=== PATIENT | female | born 1965 | race Caucasian/White ===

== ENCOUNTER → 2016-09-13 | Outpatient (CLI) | payer OTHER ==
--- NOTE | 2016-09-13 14:29 | Diagnostic Imaging Report ---
EXAM: Digital mammogram bilateral screening. COMPARISON: 03/21/14 and 01/15/13. At this time, there are no current complaints. FINDINGS: The fibroglandular tissue in both breasts is heterogeneously dense. This does limit the sensitivity of this exam. In the interval since the previous study, a fairly well-circumscribed 1.8 x 2.6 cm oval density has developed in the 1 o'clock position of the left breast approximately 15 cm from the nipple. This finding does not have an aggressive appearance and this may represent a cyst. Even so, a solid lesion cannot be entirely excluded. I would recommend that a compression/magnification view of this density be obtained in the CC and MLO projections so its margins can be better evaluated. Ultrasound should also be performed. There is also another new nodular density in the lateral aspect of the right breast roughly 11 cm from the nipple. On the craniocaudad view, this density measures approximately 1 cm. This finding is difficult to identify with certainty on the MLO view although I suspect it is in the superior portion of the breast. I would recommend that this area also be compressed in the CC and MLO projections for further study. Ultrasound should be performed, as well. IMPRESSION: Additional mammographic views and ultrasound of both breasts would be recommended for further study. ACR category zero. ACR BI-RADS Category 0: Incomplete. (Needs additional imaging evaluation). Result letter will be mailed to the patient. Note: At least 10% of breast cancer is not imaged by mammography. Dictated by: Dictated on workstation # [id number]
== END ==
LOC: RAD 09:22
PROVIDERS: ATTEND Obstetrics & Gynecology
DX: Z12.31 Encounter for screening mammogram for malignant neoplasm of breast (principal); N63 Unspecified lump in breast
CPT/HCPCS: 77067

== ENCOUNTER → 2016-09-26 | Outpatient (CLI) | payer OTHER ==
--- NOTE | 2016-09-26 10:39 | Diagnostic Imaging Report ---
EXAM: Bilateral breast ultrasound. INDICATION: Asymmetries seen on mammography. FINDINGS: In the left breast there is a lobulated 2.7 x 1.2 x 2 cm solid mass with circumscribed lobulated margins and no shadowing. There is internal vascularity demonstrated. This is the favored to be a fibroadenoma. This is located at 2:30 o'clock position, 7 cm from the nipple. Other lesions in the left breast include a 2:00 o'clock, 7 cm from the nipple adjacent to the larger lesion is a small nodule measuring the 0.8 x 0.9 x 0.6 cm. Other nonspecific hyperechoic foci are also noted around the 3:00 o'clock zone without internal vascularity. These could relate to fibroglandular tissues. The right breast demonstrates no underlying lesion. IMPRESSION: 1. The right breast demonstrates no definite abnormality. 2. The left breast demonstrates a dominant lesion with solid features measuring 2.7 cm at 2:30 o'clock position 7 cm from the nipple. This has features in favor of fibroadenoma with low suspicion for malignancy. Ultrasound-guided biopsy for confirmation is recommended. BI-RADS 4A. The findings and recommendations were discussed with the patient personally just before this dictation. Report faxed to Dr. Elif Chino at 10:40 a.m. 09/26/2016/jose Dictated by: Dictated on workstation # [id number]
--- NOTE | 2016-09-26 20:18 | Diagnostic Imaging Report ---
EXAMINATION: Bilateral breast digital diagnostic mammogram with CAD. The current study was also evaluated with a Computer Aided Detection (CAD) system. INDICATION: Focal asymmetries in the upper outer aspect of each breast. FINDINGS: Focal compression view of the left breast confirms a lobulated nodule measuring 2 cm with circumscribed benign-appearing margins. Additional views in the right breast demonstrate a small focal asymmetry persistent on compression views. Exact etiology is uncertain. IMPRESSION: Confirmed 2 cm nodule in the upper outer aspect of the left breast and persistent focal asymmetry in the upper outer aspect of the right breast. Ultrasound evaluation pending. ACR BI-RADS Category 0: Incomplete. (Needs additional imaging evaluation). Result letter will be mailed to the patient. Note: At least 10% of breast cancer is not imaged by mammography. Dictated by: Dictated on workstation # [id number]
== END ==
LOC: RAD 08:12
PROVIDERS: ATTEND Obstetrics & Gynecology
DX: D24.1 Benign neoplasm of right breast (principal)
CPT/HCPCS: 76642; 77066

== ENCOUNTER → 2016-10-22 | Outpatient (CLI) | payer OTHER ==
[~2016-10-22] VITALS: Ht 172.7 cm; Wt 75.7 kg
[~2016-10-22] MED LIST: LIDOCAINE 1% INJ 20 ML (XYLOCAINE) VIAL INJ ONE; LIDOCAINE 1% INJ 20 ML (XYLOCAINE) VIAL ONE
[2016-10-22 12:58] VITALS: BP 130/87
[2016-10-22 14:10] VITALS: BP 122/81
--- NOTE | 2016-10-22 16:38 | Diagnostic Imaging Report ---
EXAMINATION: Ultrasound-guided biopsy of a breast mass. A metallic clip placed to basil biopsy site. INDICATION: Left breast mass. CONSENT: Informed consent was obtained from the patient. The risks, benefits, potential complications and alternatives were reviewed and all questions answered to the patient's satisfaction. FINDINGS: Ultrasound images demonstrate a left breast mass at 2:30 a position. PROCEDURE: After sterile preparation and draping, 1% lidocaine was utilized for local anesthesia. A 13-gauge guide needle was introduced under live ultrasound guidance to the level of the lesion. Good needle position was documented with ultrasound images. 14-gauge biopsy needle was utilized and core biopsies were performed. Multiple samples were obtained and sent to pathology. A metallic clip was placed to basil the site of the biopsy. A subsequent mammogram is performed and confirms the proper positioning of the clip. The patient tolerated the procedure well with no immediate complications. IMPRESSION: Successful ultrasound-guided core biopsy of left breast mass. Dictated by: Dictated on workstation # [id number]
--- NOTE | 2016-10-23 08:43 | Diagnostic Imaging Report ---
Diagnostic mammogram of the left breast. INDICATION: Confirmation of a clip position after ultrasound-guided biopsy. FINDINGS: There is good position of the clip in the center of the lateral left breast mass. IMPRESSION: Confirmed good clip position in the mass along the lateral aspect of the breast after ultrasound-guided biopsy. Pathology results are pending. BI-RADS 4A Report was called to Dr. Chino by selvin at 8:45 am. ACR BI-RADS Category 4A: Low suspicion of malignancy. Result letter will be mailed to the patient. Note: At least 10% of breast cancer is not imaged by mammography. Dictated by: Dictated on workstation # [id number]
== END ==
LOC: RAD 12:48
PROVIDERS: ATTEND Obstetrics & Gynecology
DX: N63 Unspecified lump in breast (principal)
CPT/HCPCS: 19083; 88305

== ENCOUNTER → 2017-02-25 | Outpatient (CLI) | payer OTHER ==
--- NOTE | 2017-02-25 09:53 | Diagnostic Imaging Report ---
3 views of the right elbow. INDICATION: Right elbow pain. FINDINGS: No fracture, dislocation or radiopaque foreign body. No significant arthritic changes seen. No definite evidence of an effusion. IMPRESSION: Unremarkable exam. Dictated by: Dictated on workstation # [id number]
== END ==
LOC: RAD 08:53
PROVIDERS: ATTEND Nurse Practitioner Family
DX: M25.521 Pain in right elbow (principal)
CPT/HCPCS: 73080

== ENCOUNTER → 2018-11-11 | Outpatient (CLI) | payer OTHER ==
--- NOTE | 2018-11-12 20:06 | Diagnostic Imaging Report ---
INDICATION: Routine screening. Comparison is made with prior mammograms from 09/22/2017 and 09/13/2016. 2-D and 3-D bilateral screening mammography was performed. The current study was also evaluated with a Computer Aided Detection (CAD) system. 3-D tomosynthesis was also performed and reviewed. FINDINGS: Both breasts are heterogeneously dense, limiting the sensitivity of mammography. Circumscribed masses in both breasts are stable. Biopsy clip within the dominant mass in the upper left breast is again noted. No new mass or malignant-appearing microcalcifications are seen. The axillae are unremarkable. IMPRESSION: No mammographic features suspicious for malignancy are identified. ACR BI-RADS Category 2: Benign findings. Result letter will be mailed to the patient. Note: At least 10% of breast cancer is not imaged by mammography. Dictated by: Dictated on workstation # [id number]
== END ==
LOC: RAD 15:34
PROVIDERS: ATTEND Obstetrics & Gynecology
DX: Z12.31 Encounter for screening mammogram for malignant neoplasm of breast (principal)
CPT/HCPCS: 77067

== ENCOUNTER → 2018-12-14 | Outpatient (CLI) | payer OTHER ==
[~2018-12-14] MED LIST changes: +GADOBUTROL 10 MMOL/10 ML (GADAVIST) VIAL IV ONE; -LIDOCAINE 1% INJ 20 ML (XYLOCAINE) VIAL INJ ONE; -LIDOCAINE 1% INJ 20 ML (XYLOCAINE) VIAL ONE
--- NOTE | 2018-12-14 09:02 | Diagnostic Imaging Report ---
PROCEDURE: CT sinuses without contrast TECHNIQUE: Multiple contiguous axial images were obtained through the sinuses without the use of intravenous contrast. Coronal and sagittal reformations were then performed. Auto Exposure Controls were utilized during the CT exam to meet ALARA standards for radiation dose reduction. INDICATION: Chronic sinusitis. COMPARISON: None FINDINGS: No evidence of mucosal thickening or fluid levels in the paranasal sinuses. The ostiomeatal complexes are patent. The sphenoethmoid and frontoethmoid recesses are patent and unremarkable. The mastoid air cells are well pneumatized. The bony nasal septum is slightly deviated to the left. No acute facial fractures. The globes and orbits are symmetric and unremarkable. Included intracranial contents show no acute abnormalities. The included soft tissues of the head are normal in appearance. IMPRESSION: 1. Normal appearance of the paranasal sinuses. No evidence of active sinus disease. 2. Slight deviation of the bony nasal septum to the left. Dictated by: Dictated on workstation # [id number]
--- NOTE | 2018-12-14 10:38 | Diagnostic Imaging Report ---
CLINICAL INDICATION: Patient states she has been having a lot of headaches. EXAM: MRI of the brain performed without and with 10 cc of Gadavist IV contrast. Sequences include axial DWI, ADC map, coronal gradient echo, axial T2, axial FLAIR, axial T1, axial T1 post IV contrast, coronal T1 fat-sat post IV contrast, and sagittal T1 post IV contrast. COMPARISON: None. FINDINGS: There is no evidence of acute cerebral infarct, intracranial hemorrhage, or gross mass effect. There is no abnormal IV contrast enhancement. The brain parenchymal volume appears appropriate for patient's age. There is normal patel-white matter distinction. There is no significant midline shift or herniation. The [place] vascular structures show no gross abnormality as visualized. The pituitary gland, sella, and suprasellar regions are unremarkable as visualized. There is no evidence of hydrocephalus. The basal cisterns are unremarkable. The skull, extracranial soft tissue, and orbits are unremarkable. The paranasal sinuses are unremarkable. Temporal bones show no significant abnormality. IMPRESSION: Unremarkable MRI of the brain. Dictated by: Dictated on workstation # [id number]
== END ==
LOC: RAD 08:33
PROVIDERS: ATTEND Nurse Practitioner Family
DX: J32.9 Chronic sinusitis, unspecified (principal)
CPT/HCPCS: 70486; 70553

== ENCOUNTER 2020-01-10 15:07 | Outpatient (CLI) | payer OTHER | END 2020-01-10 16:00 | disposition home or self-care (01) | LOC: SLEEP 15:07 | PROVIDERS: ATTEND Nurse Practitioner Family | DX: R53.83 Other fatigue (principal) ==

== ENCOUNTER → 2020-04-07 | Outpatient (CLI) | payer OTHER | LOC: LABNPT 08:52 | PROVIDERS: ATTEND Family Medicine | DX: Z20.822 Contact with and (suspected) exposure to COVID-19 (principal) | CPT/HCPCS: 87635 ==

== ENCOUNTER → 2020-04-11 | Outpatient (CLI) | payer OTHER | LOC: LABNPT 06:03 | PROVIDERS: ATTEND Family Medicine | DX: J06.9 Acute upper respiratory infection, unspecified (principal) ==

== ENCOUNTER → 2021-04-17 | Outpatient (CLI) | payer OTHER | LOC: LABNPT 08:43 | PROVIDERS: ATTEND Family Medicine | DX: U07.1 COVID-19 (principal) | CPT/HCPCS: 87635 ==

== ENCOUNTER → 2021-05-10 | Outpatient (CLI) | payer OTHER ==
--- NOTE | 2021-05-10 09:10 | Diagnostic Imaging Report ---
Indication: Neck pain Cervical spine AP lateral views the cervical spine shows a slight reversal of lordotic curvature. There is disc space narrowing at C5-C6. Alignment is normal. IMPRESSION: Degenerative disc changes C5-C6. No other abnormalities seen. Dictated by: Dictated on workstation # [id number]
== END ==
LOC: RAD 08:43
PROVIDERS: ATTEND Nurse Practitioner Family
DX: M50.322 Other cervical disc degeneration at C5-C6 level (principal)
CPT/HCPCS: 72040

== ENCOUNTER → 2021-09-10 | Outpatient (CLI) | payer OTHER ==
--- NOTE | 2021-09-10 09:25 | Diagnostic Imaging Report ---
PROCEDURE: US Hepatic (Liver). TECHNIQUE: Multiple Real-time grayscale images were obtained over the right upper quadrant in various projections. INDICATION: Elevated liver function tests. FINDINGS: The liver is normal in size at 15 cm. The portal vein is patent and shows normal direction of flow. No discrete liver mass is identified. There is some generalized increased echogenicity throughout the liver, suggestive of hepatic steatosis. The gallbladder is surgically absent. The pancreas is unremarkable. The aorta is obscured by bowel gas. The IVC is patent. The right kidney is without calculus or hydronephrosis. There is no ascites. IMPRESSION: 1. Hepatic steatosis. 2. Status post cholecystectomy. 3. The study is otherwise unremarkable. Dictated by: Dictated on workstation # [id number]
== END ==
LOC: RAD 08:45
PROVIDERS: ATTEND Nurse Practitioner Family
DX: K76.0 Fatty (change of) liver, not elsewhere classified (principal); Z90.49 Acquired absence of other specified parts of digestive tract
CPT/HCPCS: 76705

== ENCOUNTER → 2021-10-11 | Outpatient (CLI) | payer OTHER ==
--- NOTE | 2021-10-11 08:34 | Diagnostic Imaging Report ---
PROCEDURE: US Thyroid. TECHNIQUE: Multiple real-time grayscale images were obtained of the thyroid in various projections. INDICATION: R79.89 A right lobe of thyroid measures 5.6 x 1.3 x 1.4 cm and left lobe measures 5.6 x 1.6 x 1.5 cm. Isthmus is 4 mm in thickness. Both lobes show homogeneous echotexture. There is a tiny 4 mm cyst in the upper pole right lobe. No dominant solid mass is detected. IMPRESSION: Tiny right lobe cyst. No dominant thyroid mass is detected. Dictated by: Dictated on workstation # [id number]
== END ==
LOC: RAD 07:48
PROVIDERS: ATTEND Nurse Practitioner Family
DX: R79.89 Other specified abnormal findings of blood chemistry (principal)
CPT/HCPCS: 76536

== ENCOUNTER → 2022-02-26 | Outpatient (CLI) | payer OTHER ==
--- NOTE | 2022-02-26 19:42 | Diagnostic Imaging Report ---
PROCEDURE: MRI lumbar spine. TECHNIQUE: Multiplanar, multisequence MRI of the lumbar spine was performed without contrast. INDICATION: Back pain. History of prior tethered cord release. COMPARISON is made with a previous examination performed on 07/12/2013. FINDINGS: There is slight retrolisthesis of L1 on 2 and L2 on 3. Alignment of the lumbar spine is otherwise normal. The vertebral body heights are well-maintained. There are multilevel endplate changes but no findings of an acute osseous injury or suspicious marrow replacing lesion. There are findings compatible with clinical history of cord tethering. The tip of the conus appears to extend below the level of L5-S1 with the distal cord and filum appearing to terminate in a small S3 level intraspinal lipoma. This is not significantly changed. There are no findings of a syrinx. There is no cord signal abnormality. There are tiny lower thoracic disc bulges without significant stenosis. At L1-L2 there is minimal disc bulge without significant stenosis. At L2-L3 there is mild disc space height loss with minimal disc bulge. There is no significant stenosis. At L3-L4 there is disc degeneration with mild disc bulging. There is mild facet hypertrophy. There is minimal narrowing of the central canal. There is no significant lateral recess stenosis. There is minimal narrowing of the inferior aspect of the neural foramen. L4-L5 demonstrates very slight annular disc bulging without significant stenosis. There are mildly hypertrophic facets present with mild narrowing of both neural foramina. At L5-S1 is minimal disc bulging. There is mild facet hypertrophy. There is no significant canal or lateral recess stenosis. There is mild narrowing of the left neural foramen. The aorta is normal in caliber. The right kidney is unremarkable. There is a fluid fluid level within a left sided renal cyst that may reflect a proteinaceous or hemorrhagic cyst. IMPRESSION: 1. 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 2. There is no associated syrinx or cord signal abnormality. 3. There are background degenerative features present throughout the cervical spine with slight retrolisthesis of L1 on 2 and L2 on 3. There are no findings of an acute osseous injury or a suspicious marrow replacing lesion. 4. No findings of high-grade canal or lateral recess stenosis demonstrated. The most advanced foraminal stenosis is on the left at L5-S1. 5. Fluid fluid level within an apparent hemorrhagic or proteinaceous left renal cyst. Consider sonographic assessment to exclude internal complexity. Dictated by: Dictated on workstation # [id number]
== END ==
LOC: RAD 14:45
PROVIDERS: ATTEND Nurse Practitioner Family
DX: M47.812 Spondylosis without myelopathy or radiculopathy, cervical region (principal); M47.26 Other spondylosis with radiculopathy, lumbar region; M43.16 Spondylolisthesis, lumbar region; Q06.8 Other specified congenital malformations of spinal cord; N28.1 Cyst of kidney, acquired
CPT/HCPCS: 72148

== ENCOUNTER → 2022-03-19 | Outpatient (CLI) | payer OTHER ==
--- NOTE | 2022-03-19 19:48 | Diagnostic Imaging Report ---
PROCEDURE: CT abdomen and pelvis without contrast. TECHNIQUE: Multiple contiguous axial images were obtained through the abdomen and pelvis without the use of intravenous contrast. Auto Exposure Controls were utilized during the CT exam to meet ALARA standards for radiation dose reduction. INDICATION: Frequent urinary tract infections. No prior studies are available for comparison. The lung bases are clear. Liver is unremarkable. Gallbladder surgically absent. There is no biliary ductal dilatation. Pancreas and spleen are unremarkable. No adrenal mass is detected. Kidneys are unremarkable apart from a 4.1 cm cyst upper pole left kidney. No calculi are seen. There is no hydronephrosis. No ureteral calculi are detected. Bladder is unremarkable. Aorta is nonaneurysmal. Bowel loops are normal caliber. Appendix is unremarkable. No free fluid or fluid collection is seen. The uterus is unremarkable. Bony structures do show some sclerosis of the SI joints bilaterally consistent with sacroiliitis. IMPRESSION: 1. Left renal cyst. No urinary tract calculi or obstruction is identified. 2. Findings suggestive of bilateral sacroiliitis. Dictated by: Dictated on workstation # [id number]
== END ==
LOC: RAD 17:11
PROVIDERS: ATTEND Urology
DX: N28.1 Cyst of kidney, acquired (principal); N39.0 Urinary tract infection, site not specified
CPT/HCPCS: 74176

== ENCOUNTER → 2022-11-22 | Outpatient (CLI) | payer BC ==
[~2022-11-22] VITALS: Ht 165.1 cm; Wt 111.5 kg
[~2022-11-22] MED LIST changes: +CEFTAZIDIME IV ONE; -GADOBUTROL 10 MMOL/10 ML (GADAVIST) VIAL IV ONE; +NS IV ONE
[2022-11-22 14:15] VITALS: BP 137/83
[2022-11-22 15:18] LABS: BASOPHILS # (AUTO) 0.1 10^3/uL (0.0-0.1); BASOPHILS % (AUTO) 1 % (0-10); EOSINOPHILS # (AUTO) 0.3 10^3/uL (0.0-0.3); EOSINOPHILS % (AUTO) 4 % (0-10); HEMATOCRIT 40 % (35-52); HEMOGLOBIN 13.6 g/dL (11.5-16.0); LYMPHOCYTES # (AUTO) 2.9 10^3/uL (1.0-4.0); LYMPHOCYTES % (AUTO) 38 % (12-44); MEAN CORPUSCULAR HEMOGLOBIN 30 pg (25-34); MEAN CORPUSCULAR HGB CONC 34 g/dL (32-36); MEAN CORPUSCULAR VOLUME 89 fL (80-99); MEAN PLATELET VOLUME 9.4 fL (9.0-12.2); MONOCYTES # (AUTO) 0.6 10^3/uL (0.0-1.0); MONOCYTES % (AUTO) 7 % (0-12); NEUTROPHILS # (AUTO) 3.9 10^3/uL (1.8-7.8); NEUTROPHILS % (AUTO) 50 % (42-75); PLATELET COUNT 324 10^3/uL (130-400); WHITE BLOOD COUNT 7.7 10^3/uL (4.3-11.0)
[2022-11-22 15:33] LABS: ALBUMIN 4.2 GM/DL (3.2-4.5); BILIRUBIN,TOTAL 0.7 MG/DL (0.1-1.0); CALCIUM 9.7 MG/DL (8.5-10.1); CREATININE SERUM 0.76 MG/DL (0.60-1.30); POTASSIUM 3.6 MMOL/L (3.6-5.0); TOTAL PROTEIN 7.3 GM/DL (6.4-8.2)
[2022-11-22 15:45] LABS: ERYTHROCYTE SEDIMENTATION RATE 17 MM/HR (0-30)
[2022-11-22 16:21] LABS: EOSINOPHILS % (MANUAL) 5 %; LYMPHOCYTES % (MANUAL) 39 %; MONOCYTES % (MANUAL) 4 %; NEUTROPHILS % (MANUAL) 52 %; RBC MORPH NORMAL
== END ==
LOC: SDC 14:11
PROVIDERS: ATTEND Internal Medicine Infectious Disease
DX: N39.0 Urinary tract infection, site not specified (principal); A49.8 Other bacterial infections of unspecified site; Z78.9 Other specified health status
CPT/HCPCS: 36410; 76937; 80053; 85007; 85027; 85652; C1751; 36415

== ENCOUNTER → 2022-11-25 | Outpatient (CLI) | payer BC ==
[2022-11-25 18:15] LABS: ABSOLUTE RETIC # 95 10e9/uL (24-90); BASOPHILS # (AUTO) 0.1 10^3/uL (0.0-0.1); BASOPHILS % (AUTO) 1 % (0-10); EOSINOPHILS # (AUTO) 0.4 10^3/uL (0.0-0.3); EOSINOPHILS % (AUTO) 5 % (0-10); HEMATOCRIT 39 % (35-52); HEMOGLOBIN 12.8 g/dL (11.5-16.0); LYMPHOCYTES # (AUTO) 2.8 10^3/uL (1.0-4.0); LYMPHOCYTES % (AUTO) 36 % (12-44); MEAN CORPUSCULAR HEMOGLOBIN 30 pg (25-34); MEAN CORPUSCULAR HGB CONC 33 g/dL (32-36); MEAN CORPUSCULAR VOLUME 91 fL (80-99); MEAN PLATELET VOLUME 9.5 fL (9.0-12.2); MONOCYTES # (AUTO) 0.7 10^3/uL (0.0-1.0); MONOCYTES % (AUTO) 9 % (0-12); NEUTROPHILS # (AUTO) 3.9 10^3/uL (1.8-7.8); NEUTROPHILS % (AUTO) 49 % (42-75); PLATELET COUNT 290 10^3/uL (130-400); RETICULOCYTE % 2.23 % (0.50-2.40); WHITE BLOOD COUNT 7.9 10^3/uL (4.3-11.0)
[2022-11-25 18:16] LABS: POTASSIUM 3.9 MMOL/L (3.6-5.0)
[2022-11-25 18:18] LABS: CALCIUM 9.3 MG/DL (8.5-10.1)
[2022-11-25 18:19] LABS: TOTAL PROTEIN 7.2 GM/DL (6.4-8.2)
[2022-11-25 18:21] LABS: BILIRUBIN,TOTAL 0.6 MG/DL (0.1-1.0)
[2022-11-25 18:23] LABS: CREATININE SERUM 0.69 MG/DL (0.60-1.30)
[2022-11-25 19:28] LABS: ERYTHROCYTE SEDIMENTATION RATE 21 MM/HR (0-30)
[2022-11-25 20:15] LABS: EOSINOPHILS % (MANUAL) 2 %; LYMPHOCYTES % (MANUAL) 35 %; MONOCYTES % (MANUAL) 10 %; NEUTROPHILS % (MANUAL) 53 %; PLATELET ESTIMATE ADEQUATE; RBC MORPH NORMAL
== END ==
LOC: LAB 17:42
PROVIDERS: ATTEND Internal Medicine
DX: Z01.89 Encounter for other specified special examinations (principal)
CPT/HCPCS: 36415; 80053; 82550; 83615; 85007; 85027; 85045; 85055; 85652; 86141

== ENCOUNTER 2022-12-06 15:19 | Outpatient (RCR) | payer BC ==
[2022-12-06 15:20] VITALS: BP 135/77
== END 2022-12-06 16:00 | disposition home or self-care (01) ==
LOC: SDC 15:19
PROVIDERS: ATTEND Internal Medicine Infectious Disease
DX: N39.0 Urinary tract infection, site not specified (principal); A49.8 Other bacterial infections of unspecified site